=== PATIENT | female | born 1980 | race Two or more races ===

== ENCOUNTER 2024-09-06 15:11 | Emergency (ER) | payer OTHER ==
[~2024-09-06] VITALS: Ht 157.5 cm; Wt 59.0 kg
[~2024-09-06 15:11] MED LIST: DICLOFENAC SODI50 MG PO
[2024-09-06] MEDS ORDERED: TUSNEL LIQUID178 ML PO (17:14)
[2024-09-06] MEDS ORDERED: PROAIR RESPICL90 MCG IH (17:14)
[2024-09-06] MEDS ORDERED: ZITHROMAX500 MG PO (17:14)
[2024-09-06] MEDS ORDERED: GUAIFENESIN/DEXTROMETHORPHAN 10ML BLIST.PACK PO ONE ×2 (17:15→17:18)
[2024-09-06] MEDS ORDERED: DEXAMETHASONE SODIUM PHOSPHATE 4 MG/ML VIAL IM ONE (17:15)
[2024-09-06] MEDS ORDERED: DEXAMETHASONE SODIUM PHOSPHATE 4 MG/ML VIAL ONE (17:18)
== END 2024-09-06 17:42 | disposition home or self-care (01) ==
LOC: ER 15:13
DX: R05.9 Cough, unspecified (principal)